=== PATIENT | female | born 1955 ===

== ENCOUNTER → 2018-07-31 21:20 | Outpatient (REF) | payer BC, SELFPAY ==
[2018-07-31 21:26] LABS: RBC Urine None Seen (0-5/HPF)
[2018-07-31 22:16] LABS: Appearance Urine UA CLOUDY; Bilirubin Urine UA NEGATIVE (NEGATIVE); Color Urine UA YELLOW; Glucose Urine UA NEGATIVE (Normal); Ketones Urine UA NEGATIVE (NEGATIVE); Leukocyte Esterase Urine UA 3+ (NEGATIVE); Nitrite Urine UA NEGATIVE (Negative); Occult Blood Urine UA TRACE-LYSED (Negative); Protein Urine UA NEGATIVE (Negative); Urobilinogen Urine UA 0.2 E.U./dL (0.2); pH Urine UA 8.5 (4.5-8.0)
[2018-07-31 22:23] LABS: Add Manual Diff / Slide Review NO; Basophils Percent Auto 0.6 % (0-2); Eosinophils Percent Auto 1.1 % (2-4); Hematocrit 42.9 % (36-46); Hemoglobin 14.4 g/dL (12.0-16.0); Lymphocytes Percent Auto 25.8 % (25-40); Mean Corpuscular HGB Conc 33.5 % (30-36); Mean Corpuscular Hemoglobin 30.5 PG (26-34); Mean Corpuscular Volume 91.2 fL (80-100); Monocytes Percent Auto 6.7 % (3-14); Neutrophils Absolute Auto 4400 /uL (1500-7000); Neutrophils Percent Auto 65.8 % (50-75); Platelet Count 269 X10^3/uL (150-400); Red Cell Distribution Width 14.5 % (11.6-14.8); White Blood Cell Count 6.7 X10^3/uL (4.5-11.0)
[2018-07-31 22:34] LABS: HEMOLYSIS < 15 (0-50); Iron 129 ug/dL (37-170)
[2018-07-31 22:44] LABS: Alanine Aminotransferase 22 IU/L (9-52); Albumin 4.3 g/dL (3.5-5.0); Albumin Globulin Ratio 1.4 (1.0-2.8); Alkaline Phosphatase 74 U/L (38-126); Aspartate Aminotransferase 20 IU/L (14-36); BUN Creatinine Ratio 18.6 (6-22); Bilirubin Total 0.7 mg/dL (0.2-1.3); Bilirubin Unconjugated 0.4 mg/dL (0.0-1.1); Blood Urea Nitrogen 13 mg/dL (7-17); Calcium 9.6 mg/dL (8.4-10.2); Carbon Dioxide 28 mmol/L (22-32); Chloride 104 mmol/L (98-107); Cholesterol 229 mg/dL (140-199); Estimated Glomerular Filt Rate > 60.0 mL/min (>60); Gamma Glutamyl Transpeptidase 17 U/L (12-43); Glucose 93 mg/dL (80-110); HDL Cholesterol 76 mg/dL (40-60); HEMOLYSIS < 15 (0-50); LDL Cholesterol Calculated 131 mg/dL (<100); Potassium 3.9 mmol/L (3.4-5.1); Sodium 146 mmol/L (137-145); Total Protein 7.3 g/dL (6.3-8.2); Triglycerides 111 mg/dL (35-150)
[2018-07-31 22:46] LABS: Percent Iron Saturation 39 % (15-50); Total Iron Binding Capacity 327 ug/dL (265-497); Transferrin 266 mg/dL (206-381)
[2018-07-31 22:54] LABS: Free T3, Triiodothyronine Free 6.06 pg/mL (2.77-5.27); Free T4, Direct Thyroxine 1.04 ng/dL (0.78-2.19)
[2018-07-31 22:59] LABS: Vitamin D 25 Hydroxy (D3) 118 ng/mL (30.0-100.0)
[2018-07-31 23:07] LABS: Thyroid Stimulating Hormone 0.36 uIU/mL (0.47-4.68)
[2018-07-31 23:20] LABS: Amorphous Sediment Urine 3+; Calcium Oxalate Crystals Urine Few; Squamous Epithelial Cell Urine 0-1 /HPF; WBC Urine 1-5/HPF (0-5/HPF)
[2018-07-31 23:21] LABS: Bacteria Urine Few (2-10)
[2018-07-31 23:30] LABS: Erythrocyte Sedimentation Rate 5 MM/HR (0-20)
[2018-07-31 23:37] LABS: Hemoglobin A1C% w Est Avg Glu 5.4 % (4.0-6.0)
[2018-08-01 14:41] LABS: Phosphorous 3.2 mg/dL (2.8-4.1)
[2018-08-02 15:35] LABS: Anti Thyroglobulin Antibody < 1 IU/mL (< 2); Thyroid Peroxidase Antibodies < 1 IU/mL (< 9); Triiodothyronine T3 Total 207 ng/dL (76-181)
== END ==
LOC: LAB 21:20
PROVIDERS: Visit Provider Acupuncturist
DX: Z00.00 Encounter for general adult medical examination without abnormal findings (principal)
CPT/HCPCS: 36415; 80048; 80061; 80076; 81001; 82306; 82977; 83036; 83540; 83550; 84100; 84439; 84443; 84480; 84481; 85025; 85651; 86376; 86800